=== PATIENT | male | born 1955 | race African-American/Black ===

== ENCOUNTER 2017-03-16 06:20 | Day surgery (SDC) | payer OTHER ==
[~2017-03-16] VITALS: Ht 172.7 cm; Wt 82.9 kg
--- NOTE | ~2017-03-16 | S ---
[facility] [place] [address] SURGICAL PATH RPT PROCEDURE Name: RIZWAN FLYNN JR Room #: DEP [facility]..#: [id number] Admission: 03/16/17 Date of : 53 Discharge: 03/16/17 Report #: [id number] Path Case #: [id number] PATHOLOGY REPORT COLLECTION DATE: 03/16/2017 RECEIVED DATE: 03/16/2017 SUBMITTING PHYS: Dr. Varghese Ware OTHER PHYS: SPECIMEN(S) RECEIVED: A.Ara left foot * * * * * * * * * * * * FINAL DIAGNOSIS: "Bunion left foot," removal: - Decalcified bone and articular cartilage with reactive and degenerative changes. - Scant synovial tissue with reactive changes and myxoid degeneration. (CLW:; d/t: 03/18/17) PATHOLOGIST: Michelle Worrell M.D. REPORT ELECTRONICALLY SIGNED BY: Michelle Worrell M.D. DATE/TIME: 03/18/2017 15:58 * * * * * * * * * * * * GROSS PATHOLOGY: The specimen is received in formalin labeled "Rizwan Flynn Jr., ara left foot". Received is a segment of light su bone with attached white-su fibrous soft tissue measuring 2.0 x 1.7 x 0.7 cm in greatest dimensions. The specimen is submitted representatively in cassette A1, following decalcification. (CAA; 03/17/2017) CLINICAL HISTORY: Kevin INITIAL CPT CODE(S): A; 98964, 79580 Professional services performed by [facility] at [facility] [address], [place] [address] Technical services performed by [facility] at [address] [place] [id number]. [facility] [address] [place] [address] SURGICAL PATH RPT PROCEDURE Name: RIZWAN FLYNN Room #: DEP [facility] [place] [place] Arjun#: [id number] Admission: 03/16/17 Date of : 53 Discharge: 03/16/17 Report #: [id number] Path Case #: [id number] [facility] [address] [address] PHONE: [phone] DIRECTOR: Julian Stein M.D. * * * END OF REPORT * * *
--- NOTE | ~2017-03-16 | EKG ---
[address] [address] ELECTROCARDIOGRAM REPORT Name: ELSA FINE Myranda BROOKS Room #: [facility].#: [id number] Admission: 03/16/17 Attend Phys: Varghese Ware DPM Discharge: 03/16/17 Date of : 53 Report #: [id number] THIS REPORT FOR: //name// [facility] Test Date: 2017-03-16 Test Time: 10:15:41 Pat Name: ELSA FINE Department: Room: 150 7 Gender: M Call Or Contact Centre Coach: DARREN : 1955 Requested By: Varghese Ware Order Number: [id number] MD: Torres Mobley Measurements Intervals [place] Rate: 68 P: 12 [place]: 229 QRS: -26 QRSD: 99 T: 7 QT: 410 QTc: 437 Interpretive Statements Sinus rhythm Prolonged [place] interval Borderline left axis deviation No previous ECG available for comparison Electronically Signed On 03-18-2017 9:41:16 CDT by Torres Mobley [email or web address] <ELECTRONICALLY SIGNED> By: Torres Mobley MD 03/18/17 0941 [id number] [id number] Torres Mobley MD /DARRICK
--- NOTE | ~2017-03-16 | O ---
[facility] [place] [address] OPERATIVE REPORT Name: ELSA FINE Room #: DEP [facility].#: [id number] Admission: 03/16/17 Attend Phys: Varghese Ware DPM Discharge: 03/16/17 Date of : 53 Report #: [id number] THIS REPORT FOR: //name// CC: Varghese Ware FAM unknown SURGEON: Varghese Ware DPM PREOPERATIVE DIAGNOSIS: Hallux abductovalgus deformity, left foot. POSTOPERATIVE DIAGNOSIS: Hallux abductovalgus deformity, left foot. PROCEDURE: Brooks osteotomy, left foot. ANESTHESIA: IV sedation, local nerve block. HEMOSTASIS: Provided with a well-padded ankle tourniquet to the left ankle. ESTIMATED BLOOD LOSS: Minimal. COMPLICATIONS: There were no complications during the procedure or the anesthesia. Following this preoperative course, the patient presented to the office complaining of very painful bunion deformity on the left and right foot, more notably on the left. He could no longer wear shoe gear without comfort and it considerably reduced his quality of life. Having failed all conservative measures including shoe gear, padding and strapping techniques, the patient has opted for surgical correction of the left foot first and then down the line the right foot. The patient understood the risk and complication of surgery and signed a preoperative consent form admitting to his understanding. DESCRIPTION OF PROCEDURE: The patient was wheeled to the operating room in the usual supine condition, transferred to the operative table, given IV sedation. Once IV sedation was found to be adequate, local nerve block was given to the left foot. The left foot was then prepped and draped in the usual sterile manner. Upon reentering the operating room, anesthesia was checked and found to be adequate. Esmarch, tourniquet was used to exsanguinate blood from the left foot and the ankle tourniquet elevated to 250 mmHg. A linear longitudinal incision was made over the dorsal medial aspect of the left first MPJ. This was deepened sharply and bluntly, taking care to cauterize and retract all bleeders. Access was gained to the first MPJ and the medial eminence was exposed of the first metatarsal head. Using sagittal saw, great portion of the medial eminence was removed, which was very hypertrophic. Next, a 0.045 K-wire was used as an apical guide and 60 degree Brooks osteotomy cuts were made and the capital fragment was shifted laterally. This was temporarily fixated with a 0.045 K-wire. Next, a Synthes 2.7 screw was decided upon. The towing pilot hole was drilled [address] [address] OPERATIVE REPORT Name: ELSA FINE JR Room #: [place] [facility] [facility] [place]..#: [id number] Admission: 03/16/17 Attend Phys: Varghese Ware DPM Discharge: 03/16/17 Date of : 53 Report #: [id number] with a 2.0 drill bit and the 2.7 drill bit was used for the proximal hole. The hole was measured to be approximately 16 mm. ____ 2.7 Synthes cortical screw was placed through the site and found to tighten upon end range of motion. The capital fragment was found to be secured. The remainder of the shaft of the first metatarsal was resected and the remainder of the dorsal medial eminence was burred smooth. The wound was copiously flushed with sterile saline. The first metatarsal interspace was then accessed and the adductor tendon and structures of the lateral sesamoid capsule were released exposing the fibular sesamoid, which was found to be relocated the plantar to the first metatarsal head. The hallux remained in a good corrected position and found that no other additional procedures would need to be performed at this time. The tourniquet was released and hemostasis was maintained using the cautery unit. Capsular closure was reopposed using 3-0 Vicryl suture and subcuticular closure with 4-0 Vicryl suture. Skin edges were reopposed using 4-0 nylon suture in a running continuous fashion. The left foot was then dressed and splinted in the corrected position with sterile gauze and Cady dressing. The patient was given oxycodone 10 mg 1-2 tablets p.o. q. 4-6 for pain management. We will follow up in about 3-4 days for postoperative wound management. By: [id number] Varghese Ware DPM /lacie
[~2017-03-16 06:20] MED LIST: ACYCLOVIR 400400 MG PO; ADVAIR 500-501 EACH INH; AMITRIPTYLINE; BUDEPRION SR150 MG PO; CYMBALTA60 MG PO; DEPAKOTE ER500 MG PO; DESYREL150 MG PO; DIAZEPAM 10 MG10 M1 OR; DIAZEPAM 10 MG10 M1 PO; DOXEPIN 75 MG C75 M1 GT; FERROUS SULFAT325 M1 PO; FIORICET 50-321 EACH PO; FIORICET PO; FLEXERIL PO; FLONASE; IMITREX 50 MG T50 MG PO; IMITREX100 MG PO; LAMISIL250 MG PO; LISINOPRIL10 MG PO; MS CONTIN 30 MG30 M1 GT; NEURONTIN 300300 M1 PO; NEURONTIN600 MG PO; NORCO 5-325 TA1 EACH PO; NORTRIPTYLINE H75 M1 GT; OXYCODONE HCL5 M1 PO; PERCOCET 10-321 EACH; PROAIR HFA8.5 GM INH; PROZAC20 MG PO; QUETIAPINE FUM400 M1 PO; SINGULAIR 10 MG10 M1 PO; TRAMADOL 50 MG50 MG PO; XOPENEX0.31 MG/3 IH; ZOCOR; ZOLOFT100 MG PO; ZOLPIDEM TARTRA10 MG PO
[2017-03-16 10:20] VITALS: BP 125/77
== END 2017-03-16 14:14 | disposition home or self-care (01) ==
LOC: TBA 06:20 → OR 06:20
DX: M20.12 Hallux valgus (acquired), left foot (principal); J45.909 Unspecified asthma, uncomplicated; E11.9 Type 2 diabetes mellitus without complications; I10 Essential (primary) hypertension; M19.90 Unspecified osteoarthritis, unspecified site; F41.8 Other specified anxiety disorders; Z87.891 Personal history of nicotine dependence
CPT/HCPCS: 50010; 50101; 50386; 50951; 53010; 56526; 56667; 57091; 62110; 62900; 70005